=== PATIENT | female | born 1950 | race Caucasian/White ===

== ENCOUNTER → 2017-01-16 | Outpatient (CLI) | payer MEDICARE ==
--- NOTE | 2017-01-16 19:42 | PN ---
This is a 66-year-old female patient with diagnosis of obstructive sleep apnea. The patient is coming to see me in followup in the sleep center. The patient was diagnosed having moderate to severe disease with an AHI of 25. She was titrated. She was given an auto titration with an auto CPAP unit. She is currently on a minimum pressure of 5, maximum pressure of 20, and using Nuance nasal pillows. She is doing better. She is benefiting from the treatment. She is waking up much more alert and awake. Based on her compliance data, the CPAP use for more than 4 hours is 29 out of 30 days. Her average CPAP use is around 5.7 hours per night. P90 pressure is 11.9. Leak factor is 40 L/minute and AHI is down to 1.5. As such, the patient is having some increased dryness in the mouth along with the leaks, and the patient is looking for an alternative mask. She has nasal septal deviation. At times she is having leaks from her mouth. BP is 120/71, pulse 72, respiration 16. Temperature is 97.8. Saturations is 96% on room air. Weight is 175. GENERAL APPEARANCE: Calm, comfortable. HEENT: Negative for JVD. No goiter or neck masses. Nasal septal deviation. Mallampati class 3. LUNGS: Clear to auscultation. HEART: Sounds are regular rate and rhythm. Normal S1, S2. No S3. No S4. No murmurs. ABDOMEN: Soft, nontender. No organomegaly. EXTREMITIES: No edema. No cyanosis or clubbing. IMPRESSION: 1. Moderate to severe obstructive sleep apnea with an AHI of 25. The patient is on auto CPAP therapy. 2. Nasal septal deviation. 3. Uterine prolapse. 4. Hyperlipidemia. 5. Hypothyroidism. 6. Hypertension. PLAN: 1. Utilize AirFit P10 medium-sized nasal pillows. 2. Continue with the treatment with a humidity level of 5. 3. Activate EPR at the level of 3. 4. Add RAMP time. 5. See me back in 3 months' time at my regular office.
== END | disposition home or self-care (01) ==
LOC: SLEEP 14:06
PROVIDERS: ATTEND Internal Medicine Critical Care Medicine
DX: G47.33 Obstructive sleep apnea (adult) (pediatric) (principal); J34.2 Deviated nasal septum